=== PATIENT | male | born 1985 | race Caucasian/White ===

== ENCOUNTER 2023-03-24 09:29 | Outpatient (CLI) | payer OTHER, MEDICARE | END 2023-03-24 09:30 | disposition home or self-care (01) | LOC: CSHRAD 09:29 | PROVIDERS: ATTEND Neurological Surgery | DX: M54.16 Radiculopathy, lumbar region (principal); Z98.890 Other specified postprocedural states | CPT/HCPCS: 72100 ==

== ENCOUNTER 2023-05-10 11:18 | Outpatient (CLI) | payer OTHER, MEDICARE | END 2023-05-10 11:19 | disposition home or self-care (01) | LOC: CSHRAD 11:18 | PROVIDERS: ATTEND Neurological Surgery | DX: M54.16 Radiculopathy, lumbar region (principal) | CPT/HCPCS: 72100 ==